=== PATIENT | female | born 1985 | race Caucasian/White ===

== ENCOUNTER 2017-08-23 08:15 | Emergency (ER) | payer SELFPAY ==
[~2017-08-23] VITALS: Ht 160 cm; Wt 61.0 kg
[2017-08-23 08:45] VITALS: BP 100/71
[2017-08-23] MEDS ORDERED: HYDROCODONE/ACETAMINOPHEN 5/325MG TABLET PO ONE (09:15)
[2017-08-23] MEDS ORDERED: BACITRACIN ZINC OINT UDPKT TOP ONE (09:15)
[2017-08-23] MEDS ORDERED: IBUPROFEN 600MG TABLET PO ONE (09:15)
== END 2017-08-23 12:00 | disposition home or self-care (01) ==
LOC: ER 11:58
DX: S93.409A Sprain of unspecified ligament of unspecified ankle, initial encounter (principal); W17.89XA Other fall from one level to another, initial encounter; Y93.9 Activity, unspecified
CPT/HCPCS: 73610; 99284